=== PATIENT | male | born 1990 | race Caucasian/White ===

== ENCOUNTER 2016-10-24 06:29 | Emergency (ER) | payer OTHER ==
[~2016-10-24] VITALS: Ht 175.3 cm; Wt 67.3 kg
[~2016-10-24 06:29] MED LIST: ASPIR-LOW81 MG PO; BACLOFEN10 MG PO; DOXYCYCLINE HY100 MG PO; EASY-LAX100 MG PO; ELIQUIS5 MG PO; EXTRA STRENGTH500 M1 PO; OXYCODONE HCL10 MG PO; OXYCONTIN10 MG PO; PAIN RELIEF650 MG PO
[2016-10-24 07:00] LABS: MCH 31.5 PG (29.0-34.0); MCHC 33.2 G/DL (30.0-36.0); MCV 94.9 FL (86-99); MEAN PLAT.VOLUME 9.3 uM^3 (9.0-12.4); PLATELET COUNT 243 K/uL (156-360); RBC DIS.WIDTH-SD 48.5 % (39-53); WHITE BLOOD COUNT 9.8 K/uL (4.1-10.2)
[2016-10-24 07:25] LABS: ANION GAP 5 MEQ/L (2-14); CHLORIDE 103 MEQ/L (99-109); POTASSIUM 3.8 MEQ/L (3.7-5.4); SAMPLE HEMOLYSIS CHECK 0; SAMPLE ICTERIC CHECK 0; SAMPLE LIPEMIA CHECK 0; SODIUM 137 MEQ/L (136-147)
[2016-10-24 07:31] LABS: GFR ESTIMATE (CALCULATED) > 59 mL/min/; GLUCOSE 108 mg/dL (70-99); UREA NITROGEN (BUN) 14 mg/dL (9-23)
[2016-10-24 07:40] LABS: TROP-I INTERPRETATION NEGATIVE; TROPONIN-I < 0.01 ng/mL (0.0-0.30)
[2016-10-24 07:48] LABS: D-DIMER ELISA 0.39 mg/L FEU (< 0.57)
[2016-10-24 08:26] LABS: PROTHROMBIN TIME 10.5 (9.2-11.2); PTT 27.3 (25-32)
[2016-10-24] MEDS ORDERED: NAPROXEN500 MG PO (09:59)
[2016-10-24 10:00] LABS: TROP-I INTERPRETATION NEGATIVE; TROPONIN-I < 0.01 ng/mL (0.0-0.30)
[2016-10-24 10:22] VITALS: BP 138/75
== END 2016-10-24 10:22 | disposition home or self-care (01) ==
LOC: EME 06:29
PROVIDERS: Physician Assistant
DX: R07.89 Other chest pain (principal); F17.200 Nicotine dependence, unspecified, uncomplicated; Z86.711 Personal history of pulmonary embolism
CPT/HCPCS: 71020; 80048; 84484; 85027; 85379; 85610; 85730; 93005; 99281; 99284; J1885; J3010; J7120

== ENCOUNTER 2017-06-19 09:18 | Day surgery (SDC) | payer OTHER ==
[~2017-06-19 09:18] MED LIST changes: +BUPRENORPHINE HC8 MG SL; +NAPROXEN500 MG PO; +PYRIDIUM200 MG PO
[2017-06-19 10:11] VITALS: BP 127/59
[2017-06-19 13:29] VITALS: BP 126/70
== END 2017-06-19 13:40 | disposition home or self-care (01) ==
LOC: SDC 09:18
PROVIDERS: Urology
PROC: 0TCB8ZZ Extirpation of Matter from Bladder, Via Natural or Artificial Opening Endoscopic (ICD-10-PCS; principal; 2017-06-19)
DX: N21.0 Calculus in bladder (principal); R30.0 Dysuria; F17.200 Nicotine dependence, unspecified, uncomplicated
CPT/HCPCS: 82365 90; 87641; J0690; J1100; J1170; J2250; J2405; J3010